=== PATIENT | male | born 1955 | race Caucasian/White ===

== ENCOUNTER → 2024-06-01 13:56 | Outpatient (REF) | payer MEDICARE, SELFPAY | LOC: HWRAD 13:56 | PROVIDERS: ATTENDING PHYSICIAN Physician Assistant Medical | DX: M54.41 Lumbago with sciatica, right side (principal) | CPT/HCPCS: 72110 ==

== ENCOUNTER → 2024-06-20 10:14 | Outpatient (REF) | payer MEDICARE, SELFPAY | LOC: MRI 3T 10:14 | PROVIDERS: ATTENDING PHYSICIAN Physician Assistant Medical | DX: M54.41 Lumbago with sciatica, right side (principal) | CPT/HCPCS: 72148 ==

== ENCOUNTER 2024-11-10 06:18 | Day surgery (SDC) | payer MEDICARE, SELFPAY ==
[2024-11-10 14:00] VITALS: BP 148/76; BP 151/62
[2024-11-10 14:15] VITALS: BP 151/77
[2024-11-10 14:30] VITALS: BP 145/76
== END 2024-11-10 10:09 | disposition home or self-care (01) ==
LOC: GI 06:18
PROVIDERS: ATTENDING PHYSICIAN Internal Medicine
DX: Z12.11 Encounter for screening for malignant neoplasm of colon (principal); Z86.0100 Personal history of colon polyps, unspecified; D12.2 Benign neoplasm of ascending colon; D12.3 Benign neoplasm of transverse colon; D12.8 Benign neoplasm of rectum
CPT/HCPCS: 45390; 45385; 45380; 88305

== ENCOUNTER 2025-05-09 18:43 | Emergency (ER) | payer MEDICARE, SELFPAY ==
[2025-05-09 19:00] VITALS: BP 141/99
[2025-05-09 19:16] LABS: Hematocrit 42.2 % (39.0-52.0); Hemoglobin 14.5 g/dL (13.0-18.0); Mean Corp Hgb Conc. 34.4 g/dL (33.0-37.0); Mean Corpuscular Volume 86.8 fL (80.0-94.0); Nucleated Red Blood Cells % 0 % (-); Platelet Count 297 10^3/uL (130-400); Red Cell Dist. Width 13.3 % (11.5-14.5)
[2025-05-09 19:33] LABS: Urine Character Clear (Clear)
[2025-05-09 19:44] LABS: ALT (SGPT) 24 U/L (0-50); AST (SGOT) 25 U/L (17-59); Albumin 4.6 g/dl (3.5-5.0); Alkaline Phosphatase 50 U/L (38-126); Blood Urea Nitrogen 9 mg/dl (9-20); Calcium 9.4 mg/dl (8.4-10.2); Carbon Dioxide 27 mmol/L (22-30); Chloride 105 mmol/L (98-107); Glucose 105 mg/dl (70-99); Lipase 43 U/L (23-300); Potassium 4.3 mmol/L (3.5-5.1); Sodium 140 mmol/L (135-145); Total Protein 7.0 g/dl (6.3-8.2); eGFR > 60.00
[2025-05-09 21:49] VITALS: BP 141/79
[2025-05-09 21:50] VITALS: BMI 31.3
[2025-05-09 22:00] VITALS: BP 129/72
[2025-05-09 23:00] VITALS: BP 125/87
[2025-05-09 23:30] VITALS: BP 108/90
--- NOTE | 2025-05-09 23:49 | ED.GENMED ---
History of Present Illness
<MARQUITA Zuniga - Last Filed: 05/10/25 03:12>
General
Chief Complaint: Abdominal Pain
Source: patient
Exam Limitations: none
Time Seen by Provider: 05/09/25 23:24
Nursing documentation reviewed up to this point in time: agreed with
History of Present Illness
History of Present Illness:
This patient is a 65-year-old male who notes a gradual onset of left lower quadrant pain and intermittent chills since yesterday that is getting progressively worse but is still considered mild. He says is similar to prior episodes of
diverticulitis that he had in the past. He says is worse with certain movements and when he presses on it. He denies associated nausea, vomiting, anorexia, fever, chest pain, dyspnea, new back pain, urinary symptoms.
Past History
<MARQUITA Zuniga - Last Filed: 05/10/25 03:12>
Past History
ED Past Medical History: GERD, HTN, Hypercholesterolemia and Other (Diverticulitis, Sleep apnea, Hiatal hernia)
ED Past Surgical History: Cholecystectomy and Other (Hernia repair left)
Patient has exhibited threatening behavior?: No
Social History
Tobacco: Non-smoker
Alcohol: None
Drug: None
Personal:
Living: with family
Review of Systems
<MARQUITA Zuniga - Last Filed: 05/10/25 03:12>
Review of Systems
Allergies reviewed?: Yes
All Other Systems: ROS reviewed and negative except as documented in HPI and ROS
Constitutional: Reports chills (intermittent chills)
EENT: Reports no symptoms
Respiratory: Reports no symptoms
Cardiac: Reports no symptoms
ABD/GI: Reports abdominal pain
: Reports frequency (Denies dysuria and hemeturia)
Musculoskeletal: Reports no symptoms
Skin: Reports no symptoms
Neurological: Reports no symptoms
Endocrine: Reports no symptoms
Hematologic/Lymphatic: Reports no symptoms
Psychiatric: Reports no symptoms
Phy Exam
<MARQUITA Zuniga - Last Filed: 05/10/25 03:12>
General Physical Exam
General Presentation: no apparent distress
General Skin: warm and dry
General Mental: alert
Cardiovascular Exam
Cardiovascular Exam: regular rate/rhythm
Pulmonary Exam
Pulmonary Exam: lungs clear, no rales, no rhonchi and no wheezing
Gastrointestinal Exam
Gastrointestinal Exam: soft and tender (Mild lower quadrant tenderness, no guarding, no CVA tenderness)
Musculoskeletal Exam
Musculoskeletal Exam: no edema
Course
<MARQUITA Zuniga - Last Filed: 05/10/25 03:12>
Orders/Labs/Results
Orders:
Orders
05/09/25 19:07
Complete Blood Count/With Diff Urgent
Comprehensive Metabolic Panel Urgent
Lipase Urgent
05/09/25 19:24
Urinalysis Reflex To Culture Urgent
Date Specimen was Collected: 05/09/25
Time Specimen was Collected: 19:04
05/10/25 00:02
CT Abd/pelvis W Iv Cont Urgent
Reason For Exam: LLQ abd pain
05/10/25 00:43
0.9% Sodium Chloride 1000 ml [Nss] 1,000 ml IV BOLUS
Acetaminophen [Tylenol] 1,000 mg PO NOW STA
05/10/25 02:55
Piperacillin/Tazo 4.5 Gram [Zosyn] 4.5 gram in 100 ml IV NOW
Abnormal Lab Results
05/09/25
19:07
WBC 14.0 H 10^3/uL
(4.8-10.8)
Abs Immat Gran (auto) 0.1 H 10^3/uL
(0-0.05)
Absolute Neuts (auto) 10.5 H 10^3/uL
(1.4-6.5)
Absolute Monos (auto) 1.0 H 10^3/uL
(0.1-0.6)
Absolute Eos (auto) 1.0 H 10^3/uL
(0-0.7)
Lymphocytes % 9.4 L %
(20.5-51.1)
Eosinophils % 7.0 H %
(0-6)
Glucose 105 H mg/dl
(70-99)
05/09/25 19:07
05/09/25 19:07
Mild leukocytosis
Vital Signs
Initial and Last Documented VS:
Initial Vital Signs
Temp Pulse Resp BP Pulse Ox
98.3 F 99 18 141/99 96
05/09/25 19:00 05/09/25 19:00 05/09/25 19:00 05/09/25 19:00 05/09/25 19:00
Last Documented Vital Signs
Temp Pulse Resp BP Pulse Ox
99.1 F 78 17 137/84 93
05/10/25 00:43 05/10/25 03:00 05/10/25 03:00 05/10/25 03:00 05/10/25 03:00
<Lori Barry, DO - Last Filed: 05/10/25 03:27>
Orders/Labs/Results
Orders:
Orders
05/09/25 19:07
Complete Blood Count/With Diff Urgent
Comprehensive Metabolic Panel Urgent
Lipase Urgent
05/09/25 19:24
Urinalysis Reflex To Culture Urgent
Date Specimen was Collected: 05/09/25
Time Specimen was Collected: 19:04
05/10/25 00:02
CT Abd/pelvis W Iv Cont Urgent
Reason For Exam: LLQ abd pain
05/10/25 00:43
0.9% Sodium Chloride 1000 ml [Nss] 1,000 ml IV BOLUS
Acetaminophen [Tylenol] 1,000 mg PO NOW STA
05/10/25 02:55
Piperacillin/Tazo 4.5 Gram [Zosyn] 4.5 gram in 100 ml IV NOW
Abnormal Lab Results
05/09/25
19:07
WBC 14.0 H 10^3/uL
(4.8-10.8)
Abs Immat Gran (auto) 0.1 H 10^3/uL
(0-0.05)
Absolute Neuts (auto) 10.5 H 10^3/uL
(1.4-6.5)
Absolute Monos (auto) 1.0 H 10^3/uL
(0.1-0.6)
Absolute Eos (auto) 1.0 H 10^3/uL
(0-0.7)
Lymphocytes % 9.4 L %
(20.5-51.1)
Eosinophils % 7.0 H %
(0-6)
Glucose 105 H mg/dl
(70-99)
05/09/25 19:07
05/09/25 19:07
Vital Signs
Temp: 99.1 F
Initial and Last Documented VS:
Initial Vital Signs
Temp Pulse Resp BP Pulse Ox
98.3 F 99 18 141/99 96
05/09/25 19:00 05/09/25 19:00 05/09/25 19:00 05/09/25 19:00 05/09/25 19:00
Last Documented Vital Signs
Temp Pulse Resp BP Pulse Ox
99.1 F 78 17 137/84 93
05/10/25 00:43 05/10/25 03:00 05/10/25 03:00 05/10/25 03:00 05/10/25 03:00
Ingrislt;MARQUITA Zuniga - Last Filed: 05/10/25 03:12>
MDM/Problems Addressed
Differential Diagnosis Includes:
diverticulitis, constipation, hiatal hernia, and urinary outlet obstruction
MDM/Problems Addressed:
CT abdomen obtained
<MARQUITA Zuniga - Last Filed: 05/10/25 03:12>
*Pulse Oximetry
SaO2: 93
Oxygen Mode of Delivery: Room air
Patient hypoxic: no
*Critical Care Note
Total Time (30-74mins, 75-104mins- exclusive of procedures): Not Applicable
<Lori Barry DO - Last Filed: 05/10/25 03:27>
*Radiology
Radiology exam reviewed: radiology read reviewed
ED Attending Note
<MARQUITA Zuniga - Last Filed: 05/10/25 03:12>
-
Portions of this chart may have been created with voice recognition software.� Occasional wrong word or��sound alike� substitutions may have occurred due to the inherent limitations of voice recognition software.
<Lori Barry DO - Last Filed: 05/10/25 03:27>
ED Attending Note
Patient seen and examined by attending physician: Yes
I performed the substantive portion of visit, reviewed & personally made and approve the management plan that is documented in note by myself or KAMI.: Yes
ED Attending Note:
This is a 69-year-old gentleman with history of hypertension, hyperlipidemia, GERD, BPH, colon polyps, 1 prior episode of diverticulitis a number of years ago.
He presents with 2-day history of left lower quadrant pain, worse tonight after getting up from a recliner. He had mild chills last night but no reported fever.
He denies nausea or vomiting, no diarrhea but does note somewhat mild chronic constipation. Last bowel movement 1 day ago.
He follows regularly with GI with frequent colonoscopies due to recurrent colon polyps. Most recent colonoscopy November of this year, 3 polyps removed. Recommended follow-up colonoscopy in 6 months.
Past surgical history of cholecystectomy as well as left inguinal hernia repair.
69-year-old gentleman appears his stated age, awake and alert, pleasant, appears in no acute distress. is accompanying. Oral temperature 99.1 �F.
HEENT: Oral mucosa is moist.
Neck is supple, nontender.
Heart is regular rate and rhythm.
Lungs are clear to auscultation. No respiratory distress.
Abdomen: Rotund, soft, moderate tenderness left lower quadrant as well as mild tenderness suprapubic. No palpable masses. No rebound or guarding. No CVA tenderness. Normoactive bowel sounds. There is no inguinal tenderness nor palpable inguinal
mass.
Extremities: No clubbing or cyanosis or edema. Peripheral pulses are full and equal. Nontender.
Skin is warm and dry, normal color. Good turgor. No rash.
Neuro: No focal neurodeficits.
Concern for acute diverticulitis, other consideration is constipation, abdominal wall muscle strain, UTI, ureteric stone, recurrent left inguinal hernia. Small bowel obstruction is less likely.
He is noted to have borderline low-grade fever. Will give a dose of Tylenol, initiate IV fluids and will check CT abdomen pelvis.
Labs thus far reveal mildly elevated white blood cell count of 14. Chemistries are unremarkable. Urinalysis is negative.
03:15
CAT scan shows acute sigmoid diverticulitis. No abscess nor free air.
Patient remains comfortable and reports significant relief of pain after a dose of Tylenol.
Will give a dose of IV Zosyn and plan for discharge to home with 10-day course of Augmentin. I written a prescription for a few Vicodin to have for as needed moderate pain otherwise can continue Tylenol versus ibuprofen as needed for pain.
Recommend bowel rest, limiting diet to clear liquids over the next 2 days, slowly advance thereafter.
Patient is scheduled for colonoscopy in 1 weeks time, recommend he touch base with his parts room clerk as colonoscopy may need to be postponed a week or 2 due to acute diverticulitis.
Return precautions discussed.
Discharge Plan
Departure
Patient Disposition: Home (Routine Discharge)
Date of Disposition: 05/10/25
Time of Disposition: 03:20
Patient with high blood pressure during this ER visit?: No
Condition: Good
Discharge Problem:
Acute sigmoid diverticulitis
Instructions: Clear Liquid Diet, Diverticulitis
Prescriptions:
New
amoxicillin-pot clavulanate 875-125 mg tablet
1 tab PO BID Qty: 20 0RF
hydrocodone-acetaminophen 5-300 mg tablet
1 tab PO Q8H PRN (Reason: Pain) Qty: 5 0RF
Discontinued
cephalexin [Keflex] 500 MG capsule
500 mg PO QID Qty: 40 0RF
oxycodone-acetaminophen 5 MG/325 MG tablet
1 tab PO Q6HPRN PRN (Reason: pain) Qty: 20 0RF
Referrals:
Soo Kang MD [Active, Gastroenterology] - Call in 1-3 days for appt
Desire Moseley PA-C [Family Provider, Family Practice]
Activity Restrictions/Additional Instructions:
Over the next 2 days limit your diet to only clear liquids, thereafter advance to soft bland foods.
Call your parts room clerk this week for follow-up. Your colonoscopy that is scheduled for next week may need to be postponed due to acute diverticulitis. Discuss further with your parts room clerk.
Interventions
Interventions:
*Risk Screen - Suicide Last Done: 05/09/25 19:00
*General Assessment Last Done: 05/09/25 21:50
*Neglect/Abuse Screening Last Done: 05/09/25 21:50
*ED- Fall Risk Assessment Last Done: 05/09/25 22:09
*ED COVID-19 Vaccine History Last Done: 05/09/25 21:50
LF-Ifzhqn-Jhvdyvgwjx Assessment Last Done: 05/09/25 22:05
Discharge Date and Time
Print Language: [id number]
[2025-05-10] VITALS: BP 134/94
[2025-05-10 01:02] VITALS: BP 143/92
[2025-05-10] MEDS: NSS 1000 IV (01:05)
[2025-05-10 02:00] VITALS: BP 135/82
[2025-05-10] MEDS: TYLENOL PO (02:02)
[2025-05-10] MEDS: TYLENOL 1000 MG PO (02:28)
[2025-05-10 03:00] VITALS: BP 137/84
[2025-05-10] MEDS: ZOSYN 100 IV (03:32)
== END 2025-05-10 04:00 | disposition home or self-care (01) ==
LOC: EMR 18:43
PROVIDERS: Emergency Medicine; EMERGENCY PHYSICIAN Emergency Medicine; FAMILY PHYSICIAN Student in an Organized Health Care Education/Training Program
DX: K57.32 Diverticulitis of large intestine without perforation or abscess without bleeding (principal); I10 Essential (primary) hypertension; E78.00 Pure hypercholesterolemia, unspecified; G47.30 Sleep apnea, unspecified; K21.9 Gastro-esophageal reflux disease without esophagitis; K59.09 Other constipation; N40.0 Benign prostatic hyperplasia without lower urinary tract symptoms; Z86.0100 Personal history of colon polyps, unspecified
CPT/HCPCS: 99284; 96374; 96361; 74177; 80053; 81003; 83690; 85025; Q9967

== ENCOUNTER → 2025-06-28 14:02 | Outpatient (REF) | payer MEDICARE, SELFPAY | LOC: HWRAD 14:02 | PROVIDERS: ATTENDING PHYSICIAN Physician Assistant | DX: R05.9 Cough, unspecified (principal) | CPT/HCPCS: 71046 ==

== ENCOUNTER 2025-07-15 06:22 | Day surgery (SDC) | payer MEDICARE, SELFPAY ==
[2025-07-15 09:15] VITALS: BMI 30.1
[2025-07-15 09:20] VITALS: BMI 30.1
[2025-07-15 09:25] VITALS: BP 135/93
[2025-07-15 10:43] VITALS: BP 120/83
[2025-07-15 10:45] VITALS: BP 116/88
[2025-07-15 11:00] VITALS: BP 131/91
[2025-07-15 11:15] VITALS: BP 136/94
== END 2025-07-15 11:25 | disposition home or self-care (01) ==
LOC: SDS 06:22
PROVIDERS: ATTENDING PHYSICIAN Internal Medicine Gastroenterology
DX: K57.30 Diverticulosis of large intestine without perforation or abscess without bleeding (principal); D12.8 Benign neoplasm of rectum; K64.0 First degree hemorrhoids; Z98.890 Other specified postprocedural states
CPT/HCPCS: 45331; 88305

== ENCOUNTER → 2025-08-26 12:41 | Outpatient (REF) | payer MEDICARE, SELFPAY ==
[2025-08-26 13:34] LABS: Urine Character Clear (Clear)
[2025-08-26 13:47] LABS: ALT (SGPT) 25 U/L (0-50); AST (SGOT) 28 U/L (17-59); Albumin 4.6 g/dl (3.5-5.0); Alkaline Phosphatase 48 U/L (38-126); Blood Urea Nitrogen 10 mg/dl (9-20); Calcium 9.4 mg/dl (8.4-10.2); Carbon Dioxide 27 mmol/L (22-30); Chloride 105 mmol/L (98-107); Glucose 126 mg/dl (70-99); Potassium 4.6 mmol/L (3.5-5.1); Sodium 139 mmol/L (135-145); Total Protein 7.3 g/dl (6.3-8.2); eGFR > 60.00
== END ==
LOC: REG 12:41
PROVIDERS: ATTENDING PHYSICIAN Physician Assistant Medical
DX: R10.30 Lower abdominal pain, unspecified (principal)
CPT/HCPCS: 36415; 80053; 81003

== ENCOUNTER → 2025-08-27 10:04 | Outpatient (REF) | payer MEDICARE, SELFPAY | LOC: RAD 10:04 | PROVIDERS: ATTENDING PHYSICIAN Physician Assistant Medical | DX: R10.30 Lower abdominal pain, unspecified (principal) | CPT/HCPCS: 74177; Q9967 ==